=== PATIENT | male | born 1965 | race Caucasian/White ===

== ENCOUNTER 2018-07-18 03:33 | Emergency (ER) | payer MEDICAID, MEDICARE, OTHER ==
[~2018-07-18] VITALS: Ht 182.9 cm; Wt 93.0 kg
[2018-07-18 04:12] LABS: BASOPHILS # (AUTO) 0.06 x10^3/uL (0-0.1); BASOPHILS % (AUTO) 1 % (0-1); EOSINOPHILS # (AUTO) 0.25 x10^3/uL (0-0.4); EOSINOPHILS % (AUTO) 3 % (1-7); LYMPHOCYTES # (AUTO) 2.49 x10^3/uL (1-3.4); LYMPHOCYTES % (AUTO) 31 % (22-44); MD NO; MEAN CORPUSCULAR HGB CONC 33.8 g/dL (33.2-36.2); MEAN CORPUSCULAR VOLUME 88.6 fL (81-97); MEAN PLATELET VOLUME 7.7 fL (7.4-10.4); MONOCYTES # (AUTO) 0.69 x10^3/uL (0.2-0.8); MONOCYTES % (AUTO) 9 % (2-9); NEUTROPHILS # (AUTO) 4.49 x10^3/uL (1.8-6.8); NEUTROPHILS % (AUTO) 56 % (42-75); PLATELET COUNT 231 x10^3/uL (130-400); RED BLOOD COUNT 5.27 x10^6/uL (4.38-5.82); RED CELL DISTRIBUTION WIDTH 14.6 % (9.4-14.8)
--- NOTE | 2018-07-18 04:14 | NUR ---
PT BIB [facility] FOR INTERMITTANT CP X1 WEEK, RADIATING TO LEFT ARM, NOT RELIEVED BY REST. DENIES CURRENT CP, GIVEN 324MG ASA AND 1 NITRO BY [facility]. PT HAS A STRONG COUGH, STATES HAS HAD FOR SEVERAL MONTHS. 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
[2018-07-18 04:25] LABS: ALBUMIN 3.6 g/dL (3.4-5.0); ANION GAP 4 mmol/L (5-15); CALCIUM 8.7 mg/dL (8.5-10.1); CHLORIDE 110 mmol/L (98-107); CREATININE 0.93 mg/dL (0.7-1.3)
[2018-07-18 04:29] LABS: TROPONIN I 0.035 ng/mL (0.000-0.045)
--- NOTE | 2018-07-18 04:55 | NUR ---
PT RESTING QUIETLY WITH EYES CLOSED, NO DISTRESS NOTED
--- NOTE | 2018-07-18 06:35 | NUR ---
PT RESTING QUIETLY WITH EYES CLOSED, OPENED WHEN THIS RN STARTED TYPING, PT IN NO DISTRESS
[2018-07-18 06:56] LABS: TROPONIN I 0.049 ng/mL (0.000-0.045)
--- NOTE | 2018-07-18 07:07 | NUR ---
REPORT FROM [facility].
--- NOTE | 2018-07-18 08:11 | NUR ---
PT GIVEN BREAKFAST TO EAT, OKAY PER .
[2018-07-18 08:22] VITALS: BP 98/63
--- NOTE | 2018-07-18 08:32 | NUR ---
PT AMBULATED TO THE BATHROOM WITH STEADY GAIT.
--- NOTE | 2018-07-18 08:49 | NUR ---
Patient GIVEN discharge instructions and they have confirmed that they understand the instructions. Patient ambulatory with steady gait.
[2018-07-19] MEDS ORDERED: TRAZODONE PO (06:09)
[2018-07-19] MEDS ORDERED: CLON1TAB PO (06:09)
[2018-07-19] MEDS ORDERED: LURA80TA PO (06:09)
[2018-07-19] MEDS ORDERED: OLAN5TAB7 PO (08:53)
[2018-07-19] MEDS ORDERED: HYDR25TA11 PO (08:53)
== END 2018-07-18 08:51 | disposition home or self-care (01) ==
LOC: ED 08:39
DX: R07.2 Precordial pain (principal); Z72.9 Problem related to lifestyle, unspecified
CPT/HCPCS: 36415; 71045; 80048; 82040; 83880; 84484; 85025; 93005; 99284

== ENCOUNTER 2018-07-19 04:43 | Observation (INO) | payer MEDICARE, MEDICAID ==
[~2018-07-19] VITALS: Ht 182.9 cm; Wt 87.8 kg
--- NOTE | 2018-07-19 05:14 | NUR ---
SPOKE WITH PT IN LOBBY REGARDING WAIT, PT QUITE DISSAPOINTED WITH THIS SCENARIO, AWARE THAT ORDERS HAVE BEEN PLACED TO BEGIN THE PROCESS AND THAT IT WILL NOT BE MUCH LONGER FOR A ROOM. REGISTRATION THEN CALLS TO STATE THAT PT WALKED OUT FRONT DOOR
--- NOTE | 2018-07-19 05:21 | NUR ---
PT HAS NOW RETURNED TO LOBBY DEMANDING TO BE BROUGHT BACK
[2018-07-19] MEDS ORDERED: ASPIRIN 81 MG TABLET CHEW ONE (05:58)
[2018-07-19] MEDS ORDERED: ASPIRIN 81 MG TABLET CHEW PO ONE (06:00)
--- NOTE | 2018-07-19 06:08 | NUR ---
PT MEDICATED WITH ORDERED MEDS PER EMAR. PT DOZING OFF AND ON. PT PLACED ON CARDIAC AND VITALS MONITORS. PT RESTING IN BED HOSPITAL GOWN.
[2018-07-19] MEDS ORDERED: LURA80TA PO (06:09)
[2018-07-19] MEDS ORDERED: CLON1TAB PO (06:09)
[2018-07-19] MEDS ORDERED: TRAZODONE PO (06:09)
[2018-07-19 06:38] LABS: BASOPHILS # (AUTO) 0.06 x10^3/uL (0-0.1); BASOPHILS % (AUTO) 1 % (0-1); EOSINOPHILS # (AUTO) 0.17 x10^3/uL (0-0.4); EOSINOPHILS % (AUTO) 2 % (1-7); LYMPHOCYTES # (AUTO) 2.29 x10^3/uL (1-3.4); LYMPHOCYTES % (AUTO) 29 % (22-44); MD NO; MEAN CORPUSCULAR VOLUME 88.2 fL (81-97); MEAN PLATELET VOLUME 7.5 fL (7.4-10.4); MONOCYTES # (AUTO) 0.61 x10^3/uL (0.2-0.8); MONOCYTES % (AUTO) 8 % (2-9); NEUTROPHILS # (AUTO) 4.87 x10^3/uL (1.8-6.8); NEUTROPHILS % (AUTO) 61 % (42-75); PLATELET COUNT 234 x10^3/uL (130-400); RED BLOOD COUNT 5.39 x10^6/uL (4.38-5.82); RED CELL DISTRIBUTION WIDTH 14.2 % (9.4-14.8)
--- NOTE | 2018-07-19 06:45 | NUR ---
PT HAS REMOVED BP CUFF. PT NOW AWAKE, STANDING AT END OF GURNEY, STATING HE IS HURTING AGAIN. WILL INFORM ERP.
[2018-07-19 06:48] LABS: ALBUMIN 3.4 g/dL (3.4-5.0); ANION GAP 6 mmol/L (5-15); CALCIUM 8.8 mg/dL (8.5-10.1); CHLORIDE 113 mmol/L (98-107); CREATININE 0.95 mg/dL (0.7-1.3)
--- NOTE | 2018-07-19 06:51 | NUR ---
received report from [employer]. pt upright on [place], responds approp to staff, NAD, no needs at htis time, visitor at BS, call light within reach.
[2018-07-19] MEDS ORDERED: NITROGLYCERIN SINGLE TAB 0.4 MG SL ONE (07:00)
[2018-07-19] MEDS ORDERED: NITROGLYCERIN SINGLE TAB 0.4 MG SL PRN (07:00)
--- NOTE | 2018-07-19 08:02 | NUR ---
pt laying on gurney able to doze off, reports NTG helped chest discomfort, responds approp to staff, NAD, no needs at this time, call light within reach.
[2018-07-19] MEDS ORDERED: HYDR25TA11 PO (08:53)
[2018-07-19] MEDS ORDERED: OLAN5TAB7 PO (08:53)
[2018-07-19] MEDS ORDERED: ONDANSETRON 2MG/ML, 2ML IVPush PRN (09:00)
[2018-07-19] MEDS ORDERED: NITROGLYCERIN 0.4 MG BOTTLE (25 TABS) SL PRN (09:00)
[2018-07-19] MEDS ORDERED: BISACODYL 10 MG SUPP PR PRN (09:00)
[2018-07-19] MEDS ORDERED: ENOXAPARIN 40 MG/0.4 ML SQ SCH (09:00)
[2018-07-19] MEDS ORDERED: ONDANSETRON ODT 4 MG PO PRN (09:00)
[2018-07-19] MEDS ORDERED: GUAIFENESIN/DM 200-20MG, 10ML UDC PO PRN (09:00)
[2018-07-19] MEDS ORDERED: DOCUSATE 100 MG CAPSULE PO PRN (09:00)
[2018-07-19] MEDS ORDERED: ENALAPRILAT 1.25 MG/ML, 2ML IVPush PRN (09:00)
[2018-07-19] MEDS ORDERED: POLYETHYLENE GLYCOL 17 GM PACKET PO PRN (09:00)
[2018-07-19] MEDS ORDERED: ACETAMINOPHEN 325 MG TABLET PO PRN (09:00)
--- NOTE | 2018-07-19 09:01 | NUR ---
ptc ontinues to lay on gurney mostly sleeping, responds approp to staff, NAD, no needs at this time, call light within reach.
--- NOTE | 2018-07-19 09:24 | NUR ---
Pt to be admitted to card-tele, room 503. Report called to Mandy.
[2018-07-19 09:46] LABS: O2 FLOW ROOM AIR L/min
[2018-07-19 09:55] VITALS: BP 126/85
[2018-07-19] MEDS ORDERED: HEPARIN 5,000 UNITS/ML, 1ML IV ONE (11:30)
[2018-07-19] MEDS: HEPARIN 25,000 UNITS/500ML PMX 500 ML IV PRN (11:45)
[2018-07-19] MEDS: NICOTINE 7 MG/24 HR PATCH.TD24 TD SCH ×2 (11:48→16:10)
[2018-07-19] MEDS: FAMOTIDINE 20 MG TABLET PO SCH ×2 (11:48→20:40)
[2018-07-19] MEDS: CEFTRIAXONE PMX 1GM/50ML 50 ML IV SCH (13:06)
[2018-07-19] MEDS: SODIUM CHLORIDE 0.9% 1,000 ML IV SCH (13:06)
[2018-07-19 13:45] VITALS: BP 100/65
[2018-07-19] MEDS: DOXYCYCLINE 100 MG in DEXTROSE 5% 250 ML IV SCH ×2 (14:56→22:30)
[2018-07-19 16:15] LABS: AMPHETAMINE SCREEN, URINE Positive (Negative); BARBITURATE SCREEN, URINE Negative (Negative); BENZODIAZEPINE SCREEN, URINE Positive (Negative); CANNABINOID SCREEN, URINE Positive (Negative); COCAINE SCREEN, URINE Negative (Negative); METHADONE SCREEN, URINE Negative (Negative); OPIATE SCREEN, URINE Negative (Negative)
[2018-07-19] MEDS: HEPARIN 5,000 UNITS/ML, 1ML IV PRN (18:46)
[2018-07-19 18:55] VITALS: BP 119/71
[2018-07-19] MEDS ORDERED: TRAZODONE 150MG TABLET PO ONE (21:30)
[2018-07-20] MEDS: HEPARIN 5,000 UNITS/ML, 1ML IV PRN ×2 (01:08→09:20)
[2018-07-20] MEDS: SODIUM CHLORIDE 0.9% 1,000 ML IV SCH (01:13)
[2018-07-20 01:40] VITALS: BP 129/83
[2018-07-20] MEDS ORDERED: GABA600T7 PO (04:57)
[2018-07-20 05:11] LABS: BASOPHILS # (AUTO) 0.06 x10^3/uL (0-0.1); BASOPHILS % (AUTO) 1 % (0-1); EOSINOPHILS # (AUTO) 0.31 x10^3/uL (0-0.4); EOSINOPHILS % (AUTO) 3 % (1-7); LYMPHOCYTES # (AUTO) 2.86 x10^3/uL (1-3.4); LYMPHOCYTES % (AUTO) 26 % (22-44); MD NO; MEAN CORPUSCULAR HEMOGLOBIN 29.8 pg (27.5-34.5); MEAN CORPUSCULAR HGB CONC 33.5 g/dL (33.2-36.2); MEAN CORPUSCULAR VOLUME 88.9 fL (81-97); MEAN PLATELET VOLUME 8.2 fL (7.4-10.4); MONOCYTES % (AUTO) 7 % (2-9); NEUTROPHILS # (AUTO) 7.09 x10^3/uL (1.8-6.8); NEUTROPHILS % (AUTO) 64 % (42-75); PLATELET COUNT 214 x10^3/uL (130-400); RED BLOOD COUNT 5.15 x10^6/uL (4.38-5.82); RED CELL DISTRIBUTION WIDTH 14.4 % (9.4-14.8)
[2018-07-20 05:20] LABS: ANION GAP 5 mmol/L (5-15); CALCIUM 8.5 mg/dL (8.5-10.1); CHLORIDE 113 mmol/L (98-107); CREATININE 1.01 mg/dL (0.7-1.3)
[2018-07-20] MEDS ORDERED: ASPIRIN 325 MG TABLET EC PO SCH (06:00)
[2018-07-20 06:17] VITALS: BP_SYST 75; BP_SYST 84; BP_DIAS 39; BP_DIAS 40
[2018-07-20 06:30] VITALS: BP 137/82
[2018-07-20] MEDS ORDERED: REGADENOSON 0.4 MG/5 ML SYRINGE ONE (08:58)
[2018-07-20 09:28] LABS: TROPONIN I 0.154 ng/mL (0.000-0.045)
[2018-07-20 12:19] VITALS: BP 131/87
[2018-07-20] MEDS: FAMOTIDINE 20 MG TABLET PO SCH (12:22)
[2018-07-20] MEDS: CEFTRIAXONE PMX 1GM/50ML 50 ML IV SCH (12:22)
[2018-07-20] MEDS: HEPARIN 25,000 UNITS/500ML PMX 500 ML IV PRN (12:26)
[2018-07-20] MEDS ORDERED: ATORVASTATIN 40 MG TABLET PO SCH (21:00)
== END 2018-07-20 14:58 | disposition left against medical advice (07) ==
LOC: ED 07:28 → INTOOBSV 07:29 → EDIP 07:29 → ED 08:46 → 5SO 09:57
PROVIDERS: ADMIT Hospitalist; ATTEND Hospitalist
DX: R07.89 Other chest pain (principal); F12.90 Cannabis use, unspecified, uncomplicated; F15.90 Other stimulant use, unspecified, uncomplicated; F17.210 Nicotine dependence, cigarettes, uncomplicated; F31.9 Bipolar disorder, unspecified; F41.1 Generalized anxiety disorder; G92 Toxic encephalopathy; I24.9 Acute ischemic heart disease, unspecified; Z82.49 Family history of ischemic heart disease and other diseases of the circulatory system
CPT/HCPCS: 36415; 36600; 70450; 71045; 78452; 80048; 80307; 82040; 82803; 83735; 84145; 84484; 85025; 85520; 93005; 93017; 93306; 96365; 96366; 96368; 96376; 99284; A9502; C9898; G0378; J0696; J1644; J2785; J7030; J7060

== ENCOUNTER 2018-07-23 23:55 | Inpatient (IN) | payer MEDICARE, MEDICAID ==
[~2018-07-23] VITALS: Ht 182.9 cm; Wt 95.0 kg
[~2018-07-23 23:55] MED LIST: CLON1TAB PO; GABA600T7 PO; HYDR25TA11 PO; LURA80TA PO; OLAN5TAB7 PO; TRAZODONE PO
[2018-07-24] VITALS (7 sets, daily range): BP systolic 106–147; BP diastolic 52–89
--- NOTE | 2018-07-24 00:14 | NUR ---
FIRST CONTACT WITH PT. PT AMBULATORY WO DISTRESS. PT REPORTS INTERMITTENT CP X 'SEVERAL DAYS'. PT REPORTS BEING ADMITTED TO [facility] FOR CP AND ELEVATED TROP AND LEFT AMA. PT DENIES RADIATION OF CP/SOB. +COUGH BP/SPO2/ECG MONITOR IN PLACE. NSR ON MONITOR. LAB IN TO DRAW. XRAY AT BEDSIDE.
[2018-07-24 00:23] LABS: BASOPHILS # (AUTO) 0.07 x10^3/uL (0-0.1); BASOPHILS % (AUTO) 1 % (0-1); EOSINOPHILS # (AUTO) 0.24 x10^3/uL (0-0.4); EOSINOPHILS % (AUTO) 3 % (1-7); LYMPHOCYTES # (AUTO) 3.36 x10^3/uL (1-3.4); LYMPHOCYTES % (AUTO) 39 % (22-44); MD NO; MEAN CORPUSCULAR HEMOGLOBIN 29.8 pg (27.5-34.5); MEAN CORPUSCULAR HGB CONC 33.6 g/dL (33.2-36.2); MEAN CORPUSCULAR VOLUME 88.7 fL (81-97); MEAN PLATELET VOLUME 7.1 fL (7.4-10.4); MONOCYTES # (AUTO) 0.81 x10^3/uL (0.2-0.8); MONOCYTES % (AUTO) 9 % (2-9); NEUTROPHILS # (AUTO) 4.16 x10^3/uL (1.8-6.8); NEUTROPHILS % (AUTO) 48 % (42-75); PLATELET COUNT 260 x10^3/uL (130-400); RED BLOOD COUNT 5.68 x10^6/uL (4.38-5.82); RED CELL DISTRIBUTION WIDTH 14.2 % (9.4-14.8)
[2018-07-24] MEDS ORDERED: SODIUM CHLORIDE FLUSH 10ML SYR IVF ONE (00:30)
[2018-07-24] MEDS ORDERED: ASPIRIN 81 MG TABLET CHEW PO ONE (00:30)
[2018-07-24 00:31] LABS: PROTHROMBIN TIME 10.5 Seconds (9.6-11.5)
[2018-07-24 00:34] LABS: ALANINE AMINOTRANSFERASE 30 U/L (12-78); ALBUMIN 3.8 g/dL (3.4-5.0); ANION GAP 6 mmol/L (5-15); CALCIUM 8.6 mg/dL (8.5-10.1); CHLORIDE 108 mmol/L (98-107); CREATININE 1.14 mg/dL (0.7-1.3)
[2018-07-24 00:38] LABS: ALKALINE PHOSPHATASE 92 U/L (45-117); BILIRUBIN,TOTAL 0.3 mg/dL (0.2-1.0); TOTAL PROTEIN 7.4 g/dL (6.4-8.2); TROPONIN I 0.094 ng/mL (0.000-0.045)
--- NOTE | 2018-07-24 00:56 | NUR ---
IV ESTABLISHED. PT REPORTS IMPROVEMENT IN PAIN, 3/10. DENIES NEED FOR FURTHER PAIN MEDS. SPO2 88-91% ON RA. PT DENIES SOB/PRODUCTIVE COUGH. PT PLACED ON 2L BY NC FOR SUPPORT. SPO2 >90% ON 2L O2 BY NC.
--- NOTE | 2018-07-24 01:01 | NUR ---
REPORT TO SONIA GORDILLO. PT PREPARED FOR TRANSPORT
[2018-07-24] MEDS ORDERED: SODIUM CHLORIDE 0.9% 1,000 ML IV SCH ×2 (01:17→13:33)
[2018-07-24] MEDS ORDERED: ENOXAPARIN 40 MG/0.4 ML SQ SCH (01:30)
[2018-07-24] MEDS ORDERED: hydrALAzine 20 MG/ML, 1ML IVPush PRN (01:30)
[2018-07-24] MEDS ORDERED: morphine SULFATE 10 MG/ML, 1ML IVPush PRN (01:30)
[2018-07-24] MEDS ORDERED: HEPARIN 5,000 UNITS/ML, 1ML IV PRN (03:30)
[2018-07-24] MEDS ORDERED: HEPARIN 5,000 UNITS/ML, 1ML IV ONE (03:30)
[2018-07-24] MEDS: HEPARIN 25,000 UNITS/500ML PMX 500 ML IV PRN ×2 (04:23→11:09)
[2018-07-24] MEDS: ASPIRIN 325 MG TABLET EC PO SCH (05:38)
[2018-07-24] MEDS: hydrOXyzine 50MG TABLET PO SCH ×4 (05:38→20:26)
[2018-07-24] MEDS: GABAPENTIN 300 MG CAPSULE PO SCH ×2 (07:44→20:27)
[2018-07-24] MEDS: ATORVASTATIN 40 MG TABLET PO SCH ×2 (07:45→20:27)
[2018-07-24 07:50] LABS: TROPONIN I 0.178 ng/mL (0.000-0.045)
[2018-07-24] MEDS: NITROGLYCERIN 0.4 MG BOTTLE (25 TABS) SL PRN ×3 (14:39→14:57)
[2018-07-24 14:48] LABS: CHOL/HDL RATIO 5.4; LDL/HDL RATIO 2.7 (0.5-3.0)
[2018-07-24] MEDS ORDERED: NITROGLYCERIN 0.4 MG/SPRAY SL PRN (15:00)
[2018-07-24] MEDS ORDERED: VERAPAMIL 2.5 MG/ML, 2ML ONE (15:30)
[2018-07-24] MEDS ORDERED: MIDAZOLAM 1 MG/ML, 5ML ONE (15:30)
[2018-07-24] MEDS ORDERED: HEPARIN 1,000 UNITS/ML, 10ML ONE (15:30)
[2018-07-24] MEDS ORDERED: FENTANYL PF 100 MCG/2ML ONE (15:30)
[2018-07-24] MEDS ORDERED: BIVALIRUDIN 250 MG ONE ×2 (15:30→16:11)
[2018-07-24] MEDS ORDERED: LIDOCAINE-MPF 1%, 5ML ONE (15:30)
[2018-07-24] MEDS ORDERED: TICAGRELOR 90 MG TABLET ONE (15:30)
[2018-07-24] MEDS ORDERED: LIDOCAINE 1%, 20ML ONE (15:39)
[2018-07-24] MEDS ORDERED: BIVALIRUDIN 250 MG in SODIUM CHLORIDE 0.9% 50 ML IV SCH (16:11)
[2018-07-24] MEDS ORDERED: ASPIRIN 325 MG TABLET EC ONE (16:11)
[2018-07-24] MEDS: SODIUM CHLORIDE 0.9% 1,000 ML IV SCH ×2 (16:11→23:36)
[2018-07-24] MEDS ORDERED: ACETAMINOPHEN 325 MG TABLET ONE (20:17)
[2018-07-24] MEDS: TICAGRELOR 90 MG TABLET PO SCH (20:26)
[2018-07-24] MEDS: ACETAMINOPHEN 325 MG TABLET PO PRN (20:27)
[2018-07-24] MEDS ORDERED: LURASIDONE 20 MG TABLET PO SCH (21:00)
[2018-07-24] MEDS ORDERED: OLANZAPINE 10 MG TABLET PO SCH (21:00)
[2018-07-24] MEDS ORDERED: DIPHENHYDRAMINE 50 MG CAPSULE ONE (21:54)
[2018-07-24] MEDS ORDERED: DIPHENHYDRAMINE 50 MG CAPSULE PO PRN (22:00)
[2018-07-25 02:00] VITALS: BP 119/75
[2018-07-25] MEDS: ACETAMINOPHEN 325 MG TABLET PO PRN (04:01)
[2018-07-25 05:21] LABS: BASOPHILS # (AUTO) 0.05 x10^3/uL (0-0.1); BASOPHILS % (AUTO) 1 % (0-1); EOSINOPHILS # (AUTO) 0.25 x10^3/uL (0-0.4); EOSINOPHILS % (AUTO) 2 % (1-7); LYMPHOCYTES # (AUTO) 2.54 x10^3/uL (1-3.4); LYMPHOCYTES % (AUTO) 24 % (22-44); MD NO; MEAN CORPUSCULAR HEMOGLOBIN 29.7 pg (27.5-34.5); MEAN CORPUSCULAR HGB CONC 33.7 g/dL (33.2-36.2); MEAN CORPUSCULAR VOLUME 88.2 fL (81-97); MEAN PLATELET VOLUME 7.6 fL (7.4-10.4); MONOCYTES # (AUTO) 0.86 x10^3/uL (0.2-0.8); MONOCYTES % (AUTO) 8 % (2-9); NEUTROPHILS # (AUTO) 6.99 x10^3/uL (1.8-6.8); NEUTROPHILS % (AUTO) 65 % (42-75); PLATELET COUNT 206 x10^3/uL (130-400); RED BLOOD COUNT 4.92 x10^6/uL (4.38-5.82); RED CELL DISTRIBUTION WIDTH 14.3 % (9.4-14.8)
[2018-07-25 05:27] LABS: ANION GAP 6 mmol/L (5-15); CALCIUM 8.6 mg/dL (8.5-10.1); CHLORIDE 112 mmol/L (98-107); CHOLESTEROL, TOTAL 170 mg/dL (140-239); CREATININE 0.97 mg/dL (0.7-1.3)
[2018-07-25 05:29] LABS: CHOL/HDL RATIO 5.7; HDL CHOL % 18 % (26-37); HDL CHOLESTEROL (DIRECT) 30 mg/dL (40-60); LDL CHOLESTEROL,CALCULATED 100 mg/dL (54-169); LDL/HDL RATIO 3.3 (0.5-3.0); TRIGLYCERIDES 200 mg/dL (50-200); VLDL CHOLESTEROL 40 mg/dL (0-25)
[2018-07-25] MEDS: ASPIRIN 325 MG TABLET EC PO SCH (06:23)
[2018-07-25] MEDS: hydrOXyzine 50MG TABLET PO SCH ×2 (06:24→11:00)
[2018-07-25 06:35] VITALS: BP 130/91
[2018-07-25] MEDS: TICAGRELOR 90 MG TABLET PO SCH (08:52)
[2018-07-25] MEDS: GABAPENTIN 300 MG CAPSULE PO SCH (08:53)
[2018-07-25] MEDS ORDERED: ISOS30TA8 PO (10:20)
[2018-07-25] MEDS ORDERED: TICA90TA PO (10:20)
[2018-07-25] MEDS ORDERED: ASPI81TA45 PO (10:20)
[2018-07-25] MEDS ORDERED: ATOR-2 PO (10:20)
[2018-07-25] MEDS ORDERED: LISI-424 PO (10:20)
[2018-07-25] MEDS ORDERED: ATORVASTATIN 80 MG TABLET PO SCH (21:00)
== END 2018-07-25 13:20 | disposition left against medical advice (07) | DRG 248 ==
LOC: ED 07-24 00:35 → EDIP 07-24 00:43 → 5SO 07-24 01:30 → DCLOUNGE 07-25 13:00
PROVIDERS: ADMIT Family Medicine; ATTEND Family Medicine
PROC: 4A023N7 Measurement of Cardiac Sampling and Pressure, Left Heart, Percutaneous Approach (ICD-10-PCS; principal; 2018-07-24)
PROC: 02703DZ Dilation of Coronary Artery, One Artery with Intraluminal Device, Percutaneous Approach (ICD-10-PCS; 2018-07-24)
PROC: B2111ZZ Fluoroscopy of Multiple Coronary Arteries using Low Osmolar Contrast (ICD-10-PCS; 2018-07-24)
PROC: B2151ZZ Fluoroscopy of Left Heart using Low Osmolar Contrast (ICD-10-PCS; 2018-07-24)
DX: I21.4 Non-ST elevation (NSTEMI) myocardial infarction (principal); I50.33 Acute on chronic diastolic (congestive) heart failure; E78.5 Hyperlipidemia, unspecified; I25.10 Atherosclerotic heart disease of native coronary artery without angina pectoris; F31.9 Bipolar disorder, unspecified; F15.90 Other stimulant use, unspecified, uncomplicated; F40.00 Agoraphobia, unspecified; F41.1 Generalized anxiety disorder; F17.210 Nicotine dependence, cigarettes, uncomplicated; G62.9 Polyneuropathy, unspecified; Z79.82 Long term (current) use of aspirin; Z82.49 Family history of ischemic heart disease and other diseases of the circulatory system; Z71.6 Tobacco abuse counseling; S30.1XXA Contusion of abdominal wall, initial encounter; X58.XXXA Exposure to other specified factors, initial encounter; Y93.89 Activity, other specified; Y92.89 Other specified places as the place of occurrence of the external cause; Y99.8 Other external cause status; Z91.14 Patient's other noncompliance with medication regimen
CPT/HCPCS: 36415; 71045; 80048; 80053; 80061; 83880; 84484; 85025; 85520; 85610; 85730; 93005; 93458; 99156; 99157; 99285; C1760; C1769; C1876; C1894; C9600; G0378; J0583; J1644; J1650; J2250; J3010; J3490; C1887; J7030; Q9967

== ENCOUNTER 2018-09-25 03:38 | Inpatient (IN) | payer MEDICARE, MEDICAID ==
[~2018-09-25] VITALS: Ht 182.9 cm; Wt 99.6 kg
[~2018-09-25 03:38] MED LIST changes: +ASPI81TA45 PO; +ATOR-2 PO; +ISOS30TA8 PO; +LISI-424 PO; +TICA90TA PO
--- NOTE | 2018-09-25 03:49 | NUR ---
Pt presents to ed c/o L side cp radiating to arm and associated sob starting at 0030 this am. States hx of stent placementx1 month and on brulenta. States has been keeping up to date on blood thinner. Took 324 mg asa before [facility] and 1 dose of nitro from [facility], w/ no relief. All monitoring applied. Vss. Call light within reach. Pa at bedside. Ekg accomplished upon admit to ed.
[2018-09-25 04:12] LABS: BASOPHILS # (AUTO) 0.09 x10^3/uL (0-0.1); BASOPHILS % (AUTO) 1 % (0-1); EOSINOPHILS # (AUTO) 0.15 x10^3/uL (0-0.4); EOSINOPHILS % (AUTO) 2 % (1-7); LYMPHOCYTES # (AUTO) 2.39 x10^3/uL (1-3.4); LYMPHOCYTES % (AUTO) 29 % (22-44); MD NO; MEAN CORPUSCULAR HEMOGLOBIN 29.9 pg (27.5-34.5); MEAN CORPUSCULAR HGB CONC 31.5 g/dL (33.2-36.2); MEAN CORPUSCULAR VOLUME 94.9 fL (81-97); MONOCYTES # (AUTO) 0.56 x10^3/uL (0.2-0.8); MONOCYTES % (AUTO) 7 % (2-9); NEUTROPHILS % (AUTO) 62 % (42-75); PLATELET COUNT 206 x10^3/uL (130-400); RED BLOOD COUNT 5.36 x10^6/uL (4.38-5.82); RED CELL DISTRIBUTION WIDTH 15.9 % (9.4-14.8)
[2018-09-25 04:23] LABS: ALANINE AMINOTRANSFERASE 174 U/L (12-78); ALBUMIN 3.8 g/dL (3.4-5.0); ANION GAP 7 mmol/L (5-15); CHLORIDE 109 mmol/L (98-107); CREATININE 0.99 mg/dL (0.7-1.3); INTERNATIONAL NORMALIZED RATIO 0.99 (0.93-1.1); PROTHROMBIN TIME 10.4 Seconds (9.6-11.5)
[2018-09-25 04:28] LABS: ALKALINE PHOSPHATASE 92 U/L (45-117); BILIRUBIN,TOTAL 0.4 mg/dL (0.2-1.0); TOTAL PROTEIN 7.5 g/dL (6.4-8.2); TROPONIN I < 0.015 ng/mL (0.000-0.045)
[2018-09-25] MEDS ORDERED: MORPHINE SULFATE 4 MG/ML, 1ML ONE (04:51)
[2018-09-25] MEDS ORDERED: MORPHINE SULFATE 4 MG/ML, 1ML IVPush ONE (05:00)
[2018-09-25] MEDS ORDERED: SODIUM CHLORIDE 0.9% 1,000 ML IV SCH (05:32)
[2018-09-25] MEDS ORDERED: hydrALAzine 20 MG/ML, 1ML IVPush PRN (06:00)
[2018-09-25] MEDS ORDERED: ONDANSETRON ODT 4 MG PO PRN (06:00)
[2018-09-25] MEDS ORDERED: ONDANSETRON 2MG/ML, 2ML IVPush PRN (06:00)
[2018-09-25] MEDS ORDERED: PROMETHAZINE 25 MG/ML, 1ML IM PRN (06:00)
[2018-09-25] MEDS ORDERED: LABETALOL 5MG/ML, 20ML IVPush PRN (06:00)
[2018-09-25] MEDS ORDERED: BISACODYL 10 MG SUPP PR PRN (06:00)
[2018-09-25] MEDS ORDERED: POLYETHYLENE GLYCOL 17 GM PACKET PO PRN (06:00)
[2018-09-25] MEDS ORDERED: DOCUSATE 100 MG CAPSULE PO PRN (06:00)
[2018-09-25] MEDS ORDERED: NITROGLYCERIN 0.4 MG BOTTLE (25 TABS) SL PRN (06:00)
[2018-09-25] MEDS ORDERED: ACETAMINOPHEN 325 MG TABLET PO PRN (06:00)
[2018-09-25] MEDS ORDERED: OXYcodone/APAP 5/325MG TABLET PO PRN (06:00)
[2018-09-25 06:18] VITALS: BP 133/90
[2018-09-25 06:31] LABS: FREE T4 (FREE THYROXINE) 1.02 ng/dL (0.76-1.46); TROPONIN I < 0.015 ng/mL (0.000-0.045)
[2018-09-25 06:32] LABS: TROPONIN I < 0.015 ng/mL (0.000-0.045)
[2018-09-25 07:11] LABS: HEMOGLOBIN A1C 5.3 % (4.2-6.3)
[2018-09-25] MEDS ORDERED: PANTOPRAZOLE 40 MG IV IVPush SCH (07:30)
[2018-09-25] MEDS: ASPIRIN 325 MG TABLET EC PO SCH (08:21)
[2018-09-25] MEDS: HEPARIN 5,000 UNITS/ML, 1ML SQ SCH ×2 (08:22→16:00)
[2018-09-25] MEDS: ISOSORBIDE MONONITRATE ER 30 MG TABLET PO SCH (08:22)
[2018-09-25] MEDS: hydrOXyzine 50MG TABLET PO SCH ×4 (08:22→21:09)
[2018-09-25] MEDS: GABAPENTIN 300 MG CAPSULE PO SCH ×2 (08:22→21:09)
[2018-09-25] MEDS: TICAGRELOR 90 MG TABLET PO SCH ×2 (08:22→21:09)
[2018-09-25] MEDS: LISINOPRIL 5 MG TABLET PO SCH (08:23)
[2018-09-25 08:45] VITALS: BP 120/77
[2018-09-25] MEDS: morphine SULFATE 10 MG/ML, 1ML IVPush PRN ×2 (10:31→21:28)
[2018-09-25 13:52] VITALS: BP 115/77
[2018-09-25] MEDS ORDERED: HEPARIN 1,000 UNITS/ML, 10ML ONE (14:31)
[2018-09-25] MEDS ORDERED: BIVALIRUDIN 250 MG ONE (14:31)
[2018-09-25] MEDS ORDERED: MIDAZOLAM 1 MG/ML, 5ML ONE (14:31)
[2018-09-25] MEDS ORDERED: VERAPAMIL 2.5 MG/ML, 2ML ONE (14:31)
[2018-09-25] MEDS ORDERED: TICAGRELOR 90 MG TABLET ONE (14:31)
[2018-09-25] MEDS ORDERED: FENTANYL PF 100 MCG/2ML ONE (14:31)
[2018-09-25 19:12] VITALS: BP 107/68
[2018-09-25 19:26] LABS: MICROSCOPIC NOT IND
[2018-09-25 19:31] LABS: CULTURE INDICATED? NO
[2018-09-25 19:38] LABS: AMPHETAMINE SCREEN, URINE Positive (Negative); BARBITURATE SCREEN, URINE Negative (Negative); BENZODIAZEPINE SCREEN, URINE Positive (Negative); CANNABINOID SCREEN, URINE Positive (Negative); COCAINE SCREEN, URINE Negative (Negative); METHADONE SCREEN, URINE Negative (Negative); OPIATE SCREEN, URINE Positive (Negative)
[2018-09-25] MEDS: SODIUM CHLORIDE 0.9% 1,000 ML IV SCH (20:17)
[2018-09-25] MEDS ORDERED: ATORVASTATIN 80 MG TABLET PO SCH (21:00)
[2018-09-25 21:08] VITALS: BP 113/68
[2018-09-25] MEDS ORDERED: LURASIDONE 20 MG TABLET PO SCH (21:30)
[2018-09-25] MEDS ORDERED: TRAZODONE 150MG TABLET PO SCH (22:30)
[2018-09-25] MEDS ORDERED: OLANZAPINE ODT 10MG PO SCH (22:30)
[2018-09-25 22:40] LABS: TROPONIN I < 0.015 ng/mL (0.000-0.045)
[2018-09-25 23:26] VITALS: BP 98/62
[2018-09-26 01:31] VITALS: BP 98/62
[2018-09-26] MEDS: SODIUM CHLORIDE 0.9% 1,000 ML IV SCH ×2 (03:37→10:51)
[2018-09-26 05:15] LABS: CHLORIDE 113 mmol/L (98-107)
[2018-09-26 05:27] LABS: ALANINE AMINOTRANSFERASE 136 U/L (12-78); ALKALINE PHOSPHATASE 85 U/L (45-117); ANION GAP 4 mmol/L (5-15); BILIRUBIN,TOTAL 0.4 mg/dL (0.2-1.0); CALCIUM 7.9 mg/dL (8.5-10.1); CHOL/HDL RATIO 3.4; CHOLESTEROL, TOTAL 160 mg/dL (140-239); CREATININE 1.04 mg/dL (0.7-1.3); HDL CHOL % 29 % (26-37); HDL CHOLESTEROL (DIRECT) 47 mg/dL (40-60); LDL CHOLESTEROL,CALCULATED 74 mg/dL (54-169); LDL/HDL RATIO 1.6 (0.5-3.0); TRIGLYCERIDES 195 mg/dL (50-200); VLDL CHOLESTEROL 39 mg/dL (0-25)
[2018-09-26] MEDS: hydrOXyzine 50MG TABLET PO SCH ×2 (05:56→10:57)
[2018-09-26] MEDS: ASPIRIN 325 MG TABLET EC PO SCH (05:56)
[2018-09-26] MEDS: HEPARIN 5,000 UNITS/ML, 1ML SQ SCH ×2 (05:57→14:00)
[2018-09-26] MEDS ORDERED: PANTOPROZOLE 40MG TABLET PO SCH (06:00)
[2018-09-26] MEDS ORDERED: NICOTINE 7 MG/24 HR PATCH.TD24 TD SCH (06:00)
[2018-09-26 06:59] LABS: MEAN CORPUSCULAR HEMOGLOBIN 30.6 pg (27.5-34.5); MEAN CORPUSCULAR HGB CONC 33.1 g/dL (33.2-36.2); MEAN CORPUSCULAR VOLUME 92.2 fL (81-97); MEAN PLATELET VOLUME 7.1 fL (7.4-10.4); PLATELET COUNT 156 x10^3/uL (130-400); RED BLOOD COUNT 4.57 x10^6/uL (4.38-5.82); RED CELL DISTRIBUTION WIDTH 16.2 % (9.4-14.8)
[2018-09-26 07:12] LABS: BASOPHILS # (AUTO) 0.03 x10^3/uL (0-0.1); BASOPHILS % (AUTO) 0 % (0-1); EOSINOPHILS # (AUTO) 0.14 x10^3/uL (0-0.4); EOSINOPHILS % (AUTO) 2 % (1-7); LYMPHOCYTES # (AUTO) 1.62 x10^3/uL (1-3.4); LYMPHOCYTES % (AUTO) 23 % (22-44); MD SCAN; MONOCYTES # (AUTO) 0.52 x10^3/uL (0.2-0.8); MONOCYTES % (AUTO) 8 % (2-9); NEUTROPHILS # (AUTO) 4.66 x10^3/uL (1.8-6.8); NEUTROPHILS % (AUTO) 67 % (42-75)
[2018-09-26 07:38] VITALS: BP 124/68
[2018-09-26] MEDS: ISOSORBIDE MONONITRATE ER 30 MG TABLET PO SCH (07:44)
[2018-09-26] MEDS: LISINOPRIL 5 MG TABLET PO SCH (07:44)
[2018-09-26] MEDS: GABAPENTIN 300 MG CAPSULE PO SCH (07:44)
[2018-09-26] MEDS ORDERED: CLOPIDOGREL 75 MG TABLET PO SCH (09:00)
[2018-09-26] MEDS ORDERED: hydrOXyzine 10MG TABLET ONE (10:54)
[2018-09-26] MEDS ORDERED: NITR0.4T SL (14:18)
[2018-09-26] MEDS ORDERED: ONDA4TAB13 PO (14:18)
[2018-09-26] MEDS ORDERED: PANT40TA5 PO (14:18)
[2018-09-26] MEDS ORDERED: ASPI-650 PO (14:18)
[2018-09-26] MEDS ORDERED: CLOP75TA PO (14:18)
[2018-09-26] MEDS ORDERED: OLAN10TA7 PO (14:18)
[2018-09-26] MEDS ORDERED: LURA20TA PO (14:18)
[2018-09-26] MEDS ORDERED: NICO-485 TD (14:18)
[2018-09-26] MEDS ORDERED: TRAZ150T62 PO (14:18)
== END 2018-09-26 15:35 | disposition home or self-care (01) | DRG 248 ==
LOC: ED 05:03 → EDIP 05:06 → 5SO 06:17 → DCLOUNGE 09-26 15:25
PROVIDERS: ADMIT Internal Medicine; ATTEND Internal Medicine
PROC: 02703DZ Dilation of Coronary Artery, One Artery with Intraluminal Device, Percutaneous Approach (ICD-10-PCS; principal; 2018-09-25)
PROC: 4A023N7 Measurement of Cardiac Sampling and Pressure, Left Heart, Percutaneous Approach (ICD-10-PCS; 2018-09-25)
PROC: B2111ZZ Fluoroscopy of Multiple Coronary Arteries using Low Osmolar Contrast (ICD-10-PCS; 2018-09-25)
PROC: B2151ZZ Fluoroscopy of Left Heart using Low Osmolar Contrast (ICD-10-PCS; 2018-09-25)
DX: I25.10 Atherosclerotic heart disease of native coronary artery without angina pectoris (principal); I50.33 Acute on chronic diastolic (congestive) heart failure; E78.5 Hyperlipidemia, unspecified; F12.10 Cannabis abuse, uncomplicated; F15.10 Other stimulant abuse, uncomplicated; F17.210 Nicotine dependence, cigarettes, uncomplicated; F41.9 Anxiety disorder, unspecified; F31.9 Bipolar disorder, unspecified; I25.2 Old myocardial infarction
CPT/HCPCS: 36415; 71045; 76700; 80053; 80061; 80307; 81003; 83036; 83735; 84439; 84443; 84484; 85025; 85379; 85610; 85730; 92928; 93005; 93458; 96374; 99156; C1769; C1876; C1894; G0378; J0583; J1644; J2250; J3010; C1887; C9113; J2270; J7030; Q9967

== ENCOUNTER 2019-06-03 01:54 | Emergency (ER) | payer MEDICARE, MEDICAID ==
[~2019-06-03] VITALS: Ht 185.4 cm; Wt 88.0 kg
[~2019-06-03 01:54] MED LIST changes: +ACAM333T7 PO; +ASPI-650 PO; +ASPI325T17 PO; +ATOR40TA78 PO; +CLOP75TA PO; +HYDR-826 PO; +HYDR25CA94 PO; -HYDR25TA11 PO; +LISI5TAB7 PO; +LURA20TA PO; +NICO-485 TD; +NITR0.4T41 SL; +OLAN10TA7 PO; +OLAN10TA9 PO; +ONDA4TAB13 PO; +PANT40TA5 PO; +PRAZ1CAP2 PO; +TRAZ150T62 PO
--- NOTE | 2019-06-03 02:10 | NUR ---
PT STATED "I DONT TRUST MYSELF, I WOULD SHOOT MY SELF IF I HAD A GUN", PT BIB [facility] FROM [facility] [place] WITH C/O SI, PT RAN OUT OF HIS MEDS X 3 DAYS AND STATES CANT AFFORD THEM, PT ADMITS TO ETOH USE DAILY
[2019-06-03] MEDS ORDERED: LORazepam 1MG TABLET ONE (02:20)
[2019-06-03] MEDS ORDERED: LORazepam 1MG TABLET PO ONE (02:30)
[2019-06-03 02:31] LABS: BASOPHILS # (AUTO) 0.06 x10^3/uL (0-0.1); BASOPHILS % (AUTO) 1 % (0-1); EOSINOPHILS # (AUTO) 0.31 x10^3/uL (0-0.4); EOSINOPHILS % (AUTO) 4 % (1-7); LYMPHOCYTES # (AUTO) 3.32 x10^3/uL (1-3.4); LYMPHOCYTES % (AUTO) 40 % (22-44); MD NO; MEAN CORPUSCULAR HGB CONC 33.3 g/dL (33.2-36.2); MEAN CORPUSCULAR VOLUME 90.1 fL (81-97); MEAN PLATELET VOLUME 6.7 fL (7.4-10.4); MONOCYTES # (AUTO) 0.61 x10^3/uL (0.2-0.8); MONOCYTES % (AUTO) 7 % (2-9); NEUTROPHILS # (AUTO) 4.06 x10^3/uL (1.8-6.8); NEUTROPHILS % (AUTO) 49 % (42-75); PLATELET COUNT 282 x10^3/uL (130-400); RED BLOOD COUNT 6.08 x10^6/uL (4.38-5.82); RED CELL DISTRIBUTION WIDTH 13.4 % (9.4-14.8)
[2019-06-03 02:44] LABS: ALANINE AMINOTRANSFERASE 33 U/L (12-78); ANION GAP 9 mmol/L (5-15); CALCIUM 8.9 mg/dL (8.5-10.1); CHLORIDE 109 mmol/L (98-107); CREATININE 0.85 mg/dL (0.7-1.3); SALICYLATE LEVEL 7.8 mg/dL (2.8-20.0)
[2019-06-03 02:46] LABS: ALKALINE PHOSPHATASE 107 U/L (45-117); BILIRUBIN,TOTAL 0.4 mg/dL (0.2-1.0); TOTAL PROTEIN 8.9 g/dL (6.4-8.2)
[2019-06-03 02:46] LABS: AMPHETAMINE SCREEN, URINE Negative (Negative); BARBITURATE SCREEN, URINE Negative (Negative); BENZODIAZEPINE SCREEN, URINE Negative (Negative); CANNABINOID SCREEN, URINE Positive (Negative); COCAINE SCREEN, URINE Negative (Negative); METHADONE SCREEN, URINE Negative (Negative); OPIATE SCREEN, URINE Negative (Negative)
--- NOTE | 2019-06-03 05:09 | NUR ---
BREATH ETOH 0.56
--- NOTE | 2019-06-03 05:09 | NUR ---
SOC CALLED FOR TELE PSYCH
[2019-06-03 05:10] VITALS: BP 138/70
--- NOTE | 2019-06-03 06:12 | NUR ---
PT REFUSED TO TALK TO TELE PSYCH PT DISCHARGED TO HOME
== END 2019-06-03 06:13 | disposition home or self-care (01) ==
LOC: ED 02:33
DX: F32.0 Major depressive disorder, single episode, mild (principal); F10.10 Alcohol abuse, uncomplicated; F15.10 Other stimulant abuse, uncomplicated; Z72.9 Problem related to lifestyle, unspecified; Y90.9 Presence of alcohol in blood, level not specified
CPT/HCPCS: 36415; 80053; 80307; 85025; 99284

== ENCOUNTER 2019-12-09 04:04 | Emergency (ER) | payer MEDICARE, MEDICAID ==
[~2019-12-09] VITALS: Ht 182.9 cm; Wt 100.0 kg
--- NOTE | 2019-12-09 04:12 | NUR ---
PT REFUSING ALL LABS, XRAYS AND OTHER RECOMENDED INTERVENTIONS. PT STATED HE FEELS BETTER ATFER [facility] NOTRO MEDS AND WOULD LIKE HIS RX FOR NOTRO REFILLED IF POSSIBLE FOR HIS ANGINA
[2019-12-09 04:14] VITALS: BP 148/93
[2019-12-09] MEDS ORDERED: SODIUM CHLORIDE FLUSH 10ML SYR IVF ONE (04:30)
[2019-12-09] MEDS ORDERED: ONDANSETRON 2MG/ML, 2ML IVPush ONE (04:30)
[2019-12-09] MEDS ORDERED: MORPHINE SULFATE 4 MG/ML, 1ML IVPush PRN (04:30)
== END 2019-12-09 05:00 | disposition home or self-care (01) ==
LOC: ED 04:37
DX: I20.1 Angina pectoris with documented spasm (principal); R07.2 Precordial pain; I25.2 Old myocardial infarction; F17.200 Nicotine dependence, unspecified, uncomplicated
CPT/HCPCS: 93005; 99283